=== PATIENT | female | born 1975 | race Caucasian/White ===

== ENCOUNTER → 2018-02-10 | Outpatient (CLI) | payer OTHER ==
--- NOTE | 2018-02-11 08:43 | RAD ---
Thyroid sonography Clinical indications: Fullness in neck. COMPARISON: None available. FINDINGS: The longitudinal and AP and transverse dimensions of the right lobe are 4.1 cm and 1.2 cm and 1.1 cm respectively. The right lobe is homogeneous. The longitudinal and AP and transverse dimensions of the left lobe are 4.3 cm and 1.3 cm and 1.3 cm respectively. There is a solid slightly hypoechoic nodule within the upper pole of the left lobe. No calcifications are seen within it. The isthmus measures 1.9 mm in thickness. No nodule of the isthmus is seen. IMPRESSION: Solitary solid nodule of the upper pole of the left lobe measuring 1.3 cm. Recommend ultrasound-guided biopsy. Electronically signed by: Collin Brumfield MD (02/11/2018 8:40 AM) [facility]
== END | disposition home or self-care (01) ==
LOC: US 13:39
PROVIDERS: ATTEND Physician Assistant Medical
DX: R22.1 Localized swelling, mass and lump, neck (principal)
CPT/HCPCS: 76536

== ENCOUNTER → 2021-02-20 | Outpatient (CLI) | payer OTHER ==
--- NOTE | 2021-02-20 13:26 | RAD ---
EXAM: Chest, 2 views. HISTORY: Short of breath. COMPARISON: None. FINDINGS: 2 views of the chest are obtained. There is bilateral basilar linear atelectasis. There is no infiltrate, pleural effusion or pneumothorax. The heart is normal in size. IMPRESSION: Bilateral basilar linear atelectasis. Electronically signed by: Daisha Pang MD (02/20/2021 1:23 PM) [id number]
== END ==
LOC: RAD 11:36
PROVIDERS: ATTEND Physician Assistant Medical
DX: J98.11 Atelectasis (principal); R06.02 Shortness of breath
CPT/HCPCS: 71046